=== PATIENT | female | born 1995 | race Caucasian/White ===

== ENCOUNTER → 2018-06-01 23:00 | Observation (INO) ==
--- NOTE | 2018-06-01 22:04 | OB/GYN Progress Note ---
Date of Encounter: 06/01/18 Time of Encounter: 22:00 - Assessment and Plan (1) 29 weeks gestation of Current Visit: Yes Status: Acute admitted for observation (2) NST (non-stress test) reactive on surveillance Current Visit: Yes Status: Acute FHR baseline 135 bpm moderate variability +15x15 accels no decels noted. CAt. 1 tracing Subjective - Subjective Principal diagnosis: lower abdominal and back pain, possible leaking of fluid Interval history: Patient is a 22 y/o at 29w d gestational age presents to labor and delivery with complaints of lower abdominal and back pain along with leaking fluid since 2029. Patient reports she also fell yesterday but reported that to her provider and was told as long as baby was moving good there was no need to come to labor and delivery. Patient denies vaginal bleeding. Patient reports good movement, a "gush" of fluid around 2029 that had no color to it, dysuria along with urinary frequency. Patient reports intercourse yesterday. Patient states she was on progesterone early in the but has not taken it for a long time. Patient denies any complications with current or problems with placenta. Patient receives care with Dr. Galeano. Antepartum ROS: loss of fluid, movement normal, contractions, no vaginal bleeding Objective - Exam FHR: auscultation normal, category 1 FHR comments: 135 bpm moderate variability +15x15 accels no decels noted. Cat. 1 tracing. non contractions noted. Auscultation: bilateral: normal Abdomen: Present: normal appearance, soft, gravid Uterus: Present: normal, firm Cervical dilation: 1 Cervix effacement: 25 station: -4 Comments: Speculum exam: No pooling noted. moderate amount of white discharge noted. FERN test negative SVE following speculum exam.
[2018-06-01 22:16] LABS: Bilirubin,Urine Small (Negative); Blood,Urine Negative (Negative); Clarity,Urine Cloudy (Clear); Color,Urine Dark Yellow (Yellow); Glucose,Urine (UA) Normal (Normal); Ketones,Urine 15 mg/dL (Negative); Leukocyte Esterase,Urine Large (Negative); Nitrite,Urine Negative (Negative); Protein,Urine 30 mg/dL (Neg-Trace); Specific Gravity,Urine 1.023 (1.010-1.025); Urobilinogen,Urine Normal (Normal)
[2018-06-01 22:19] LABS: Bacteria,Urine Moderate per hpf (None-Few); Hyaline Casts,Urine None Seen per lpf (None-Few); RBC,Urine 0-3 per hpf (0-3); Squamous Epithelial Cell,Urine Many per lpf (None-Few); WBC,Urine TNTC per hpf (0-3)
[2018-06-01 22:30] LABS: Calcium Oxalate Crystals,Urine Present
[2018-06-01 22:39] LABS: Amphetamine Screen,Urine Negative ng/mL (Cutoff=1000); Barbiturate Screen,Urine Negative ng/mL (Cutoff=200); Benzodiazepines Screen,Urine Negative ng/mL (Cutoff=200); Cannabinoid Screen,Urine Negative ng/mL (Cutoff = 50); Cocaine Screen,Urine Negative ng/mL (Cutoff= 300); Opiate Screen,Urine Negative ng/mL (Cutoff=300); Phencyclidine Screen,Urine Negative ng/mL (Cutoff=25)
--- NOTE | 2018-06-01 22:42 | Discharge Summary ---
Date of Encounter: 06/01/18 Time of Encounter: 22:41 - Discharge Diagnosis (1) 29 weeks gestation of Priority: Primary Status: Acute Comments: admitted for observation (2) UTI (urinary tract infection) in in third trimester Priority: Secondary Status: Acute Comments: RX for Macrobid Patient to follow up with [facility] this week - Discharge Medications Prescriptions: Nitrofurantoin (BID) [Macrobid] 100 mg PO BID 7 Days #14 capsule Home Medications: Flintstones Gummies 1 PO DAILY 04/22/18 [History] Nitrofurantoin (BID) [Macrobid] 100 mg PO BID 7 Days #14 capsule 06/01/18 [Rx] Allergies/Adverse Reactions: Allergy/AdvReac Type Severity Reaction Status Date / Time Amoxicillin Allergy Swelling Verified 03/06/17 18:41 of Lip/Tongue/Throat latex Allergy Swelling Verified 03/06/17 18:41 of Lip/Tongue/Throat morphine Allergy Swelling Verified 03/06/17 18:41 of Lip/Tongue/Throat naproxen Allergy Swelling Verified 03/06/17 18:41 of Lip/Tongue/Throat Penicillins [PCN] Allergy Swelling Verified 03/06/17 18:41 of Lip/Tongue/Throat tramadol Allergy Swelling Verified 06/01/18 22:04 of Lip/Tongue/Throat Data Procedures and tests throughout hospitalization: Laboratory Tests 06/01/18 06/01/18 22:05 22:05 Urine Color Dark Yellow Urine Clarity Cloudy A Urine pH 6.0 Ur Specific [place] 1.023 Urine Protein 30 H Urine Glucose (UA) Normal Urine Ketones 15 H Urine Blood Negative Urine Nitrite Negative Urine Bilirubin Small H Urine Urobilinogen Normal Ur Leukocyte Esterase Large H Urine Microscopic RBC 0-3 Urine Microscopic WBC TNTC H Ur Squamous Epith Cells Many H Calcium Oxalate Crystal Present Urine Bacteria Moderate H Hyaline Casts None Seen Ur Culture Indicated? NO. A Urine Opiates Screen Negative Ur Barbiturates Screen Negative Ur Phencyclidine Scrn Negative Ur Amphetamines Screen Negative U Benzodiazepines Scrn Negative Urine Cocaine Screen Negative U Marijuana (THC) Screen Negative Ur Drug Screen Interp See Below Labs on day of discharge: Labs from last 24 hours 06/01/18 06/01/18 22:05 22:05 Urine Color Dark Yellow Urine Clarity Cloudy A Urine pH 6.0 Ur Specific [place] 1.023 Urine Protein 30 H Urine Glucose (UA) Normal Urine Ketones 15 H Urine Blood Negative Urine Nitrite Negative Urine Bilirubin Small H Urine Urobilinogen Normal Ur Leukocyte Esterase Large H Urine Microscopic RBC 0-3 Urine Microscopic WBC TNTC H Ur Squamous Epith Cells Many H Calcium Oxalate Crystal Present Urine Bacteria Moderate H Hyaline Casts None Seen Ur Culture Indicated? NO. A Urine Opiates Screen Negative Ur Barbiturates Screen Negative Ur Phencyclidine Scrn Negative Ur Amphetamines Screen Negative U Benzodiazepines Scrn Negative Urine Cocaine Screen Negative U Marijuana (THC) Screen Negative Ur Drug Screen Interp See Below Date of admission: 06/01/18 21:42 Discharging clinician: Aisha Guevara Anticipated date of discharge: 06/01/18 - Patient Status Disposition: Home, Self-Care Condition: Good Functional capacity at discharge: independent ambulation - Discharge Instructions Follow Up With: Jose R Galeano MD [Non-Partnered Physician] - - Diet and Activity Activity: increase activity as tolerated Diet: regular diet Hospital Course [employer] Hospital course: False labor REactive NST UTI in Time Attestation: Total time spent providing and/or coordinating discharge services: Time Spent: Less than 30 minutes Exam - Constitutional General appearance IM: A&O X 3, pleasant, answers questions appropriately - VTE Reasons for not Prescribing Prophylaxis: Treatment not Indicated - Low risk for VTE
== END | disposition home or self-care (01) ==
LOC: 1NENULAB
PROVIDERS: ADMIT Advanced Practice Midwife; ATTEND Advanced Practice Midwife

== ENCOUNTER 2019-05-15 04:48 | Observation (INO) ==
[2019-05-15] MEDS ORDERED: *HR* FentaNYL (PF) 100 MCG/2 ML VIAL IVP ONE (05:18)
[2019-05-15] MEDS ORDERED: 0.9 % Sodium Chloride 1,000 ML IVC ONE (05:18)
[2019-05-15] MEDS ORDERED: Ondansetron 4 MG/2 ML VIAL IVP ONE (05:31)
[2019-05-15 05:42] LABS: Bilirubin,Urine Negative (Negative); Blood,Urine Large (Negative); Clarity,Urine Cloudy (Clear); Color,Urine Yellow (Yellow); Glucose,Urine (UA) Normal (Normal); Ketones,Urine Negative (Negative); Leukocyte Esterase,Urine Large (Negative); Nitrite,Urine Negative (Negative); Protein,Urine 100 mg/dL (Neg-Trace); Specific Gravity,Urine 1.016 (1.010-1.025); Urobilinogen,Urine Normal (Normal)
[2019-05-15 05:45] LABS: Bacteria,Urine Moderate per hpf (None-Few); Hyaline Casts,Urine Few per lpf (None-Few); RBC,Urine 50-100 per hpf (0-3); Squamous Epithelial Cell,Urine Many per lpf (None-Few); WBC,Urine TNTC per hpf (0-3)
[2019-05-15] MEDS ORDERED: cefTRIAXone 1,000 MG in Water for inj. (sterile) 10 ML IVP ONE (06:04)
[2019-05-15 06:13] LABS: Basophils # 0.1 K/mcL (0.0-0.2); Basophils % 0.7 %; Eosinophils # 0.4 K/mcL (0.0-0.6); Eosinophils % 2.1 %; Hematocrit 35.6 % (35.3-44.9); Hemoglobin 12.2 g/dL (11.5-15.4); Immature Granulocytes % 2.1 % (0-4); Lymphocytes # 2.5 K/mcL (0.6-4.6); Lymphocytes % 14.2 %; Mean Corpuscular HGB Conc 34.3 g/dL (31.6-35.5); Mean Corpuscular Hemoglobin 29.5 pg (28.0-33.3); Mean Corpuscular Volume 86.2 fL (83.0-100.0); Mean Platelet Volume 11.6 fL (9.4-12.4); Monocytes # 1.2 K/mcL (0.0-1.3); Monocytes % 6.6 %; Neutrophils # 13.3 K/mcL (1.6-8.9); Platelet Count 293 K/mcL (140-400); Red Blood Count 4.13 M/mcL (3.82-4.97); Red Cell Distribution Width 13.9 % (11.5-14.5); Segmented Neutrophils % 74.3 %; White Blood Count 17.9 K/mcL (4.3-11.1)
[2019-05-15] MEDS ORDERED: Nitrofurantoin (BID) 100 MG CAPSULE PO STA (06:16)
[2019-05-15 06:21] LABS: BUN/Creatinine Ratio 16 (6-26); Blood Urea Nitrogen 8 mg/dL (6-20); Calcium 8.8 mg/dL (8.6-10.3); Carbon Dioxide 23 mEq/L (23-29); Chloride 102 mEq/L (98-107); Glucose 86 mg/dL (70-105); Osmolality,Calculated 276 (280-300); Potassium 3.7 mEq/L (3.5-5.1); Sodium 134 mEq/L (136-145); eGFR For African Americans > 60 (> 60); eGFR For Non-African Americans > 60 (> 60)
[2019-05-15 07:22] VITALS: BP 97/57
[2019-05-15] MEDS ORDERED: Ringers Solution, Lactated 1,000 ML IVC ONE (09:07)
[2019-05-15] MEDS ORDERED: Acetaminophen 325 MG TABLET PO PRN (09:10)
[2019-05-15] MEDS ORDERED: Ringers Solution, Lactated 1,000 ML IVC SCH (09:15)
[2019-05-15] MEDS ORDERED: Ringers Solution, Lactated 1,000 ML ONE (09:16)
[2019-05-15] MEDS ORDERED: Naloxone 0.4 MG/ML INJ IVP PRN (09:27)
[2019-05-15] MEDS ORDERED: *HR* OxyCODONE Immed Rel 5 MG TABLET PO PRN (10:40)
== END 2019-05-15 13:00 | disposition home or self-care (01) ==
LOC: EMEROOARM 04:48 → 1NENUOBS 04:48
PROVIDERS: ADMIT Obstetrics & Gynecology; ATTEND Obstetrics & Gynecology

== ENCOUNTER 2019-08-14 01:15 | Observation (INO) ==
[2019-08-14 01:48] LABS: Bilirubin,Urine Negative (Negative); Blood,Urine Negative (Negative); Clarity,Urine Clear (Clear); Color,Urine Yellow (Yellow); Glucose,Urine (UA) Normal (Normal); Ketones,Urine Negative (Negative); Leukocyte Esterase,Urine Negative (Negative); Nitrite,Urine Negative (Negative); PH,Urine 7.5 pH Units (5.0-8.0); Protein,Urine Negative (Neg-Trace); Specific Gravity,Urine 1.018 (1.010-1.025); Urobilinogen,Urine Normal (Normal)
== END 2019-08-14 03:55 | disposition home or self-care (01) ==
LOC: 1NENULAB
PROVIDERS: ADMIT Registered Nurse; ATTEND Registered Nurse

== ENCOUNTER 2019-08-18 16:11 | Observation (INO) ==
[2019-08-18 16:46] LABS: Bilirubin,Urine Negative (Negative); Blood,Urine Negative (Negative); Clarity,Urine Cloudy (Clear); Color,Urine Yellow (Yellow); Glucose,Urine (UA) Normal (Normal); Ketones,Urine Negative (Negative); Leukocyte Esterase,Urine Trace (Negative); Nitrite,Urine Negative (Negative); Protein,Urine Negative (Neg-Trace); Urobilinogen,Urine Normal (Normal)
[2019-08-18 16:48] LABS: Bacteria,Urine Few per hpf (None-Few); Hyaline Casts,Urine None Seen per lpf (None-Few); RBC,Urine 0-3 per hpf (0-3); Squamous Epithelial Cell,Urine Many per lpf (None-Few)
[2019-08-18 17:01] LABS: Hematocrit 33.2 % (35.3-44.9); Hemoglobin 11.3 g/dL (11.5-15.4); Mean Corpuscular Hemoglobin 29.7 pg (28.0-33.3); Mean Corpuscular Volume 87.4 fL (83.0-100.0); Mean Platelet Volume 11.5 fL (9.4-12.4); Platelet Count 248 K/mcL (140-400); Red Cell Distribution Width 13.8 % (11.5-14.5); White Blood Count 14.5 K/mcL (4.3-11.1)
[2019-08-18 17:04] LABS: Prothrombin Time 11.9 Seconds (9.4-12.1)
[2019-08-18 17:06] LABS: Activated Partial Thrombo Time 30.5 Seconds (26.0-36.0)
[2019-08-18 17:35] LABS: Trichomonas DNA Not Detected (Not Detect)
[2019-08-18 17:36] LABS: Candida DNA Not Detected (Not Detect); Gardnerella DNA DETECTED (Not Detect)
== END 2019-08-18 19:58 | disposition home or self-care (01) ==
LOC: 1NENULAB
PROVIDERS: ADMIT Advanced Practice Midwife; ATTEND Advanced Practice Midwife

== ENCOUNTER → 2019-08-21 23:56 | Observation (INO) ==
[~2019-08-21 23:56] MED LIST: hydrOXYzine pamoate 25 MG CAPSULE PO ONE
== END | disposition home or self-care (01) ==
LOC: 1NENULAB
PROVIDERS: ADMIT Registered Nurse; ATTEND Registered Nurse

== ENCOUNTER → 2019-09-12 10:13 | Observation (INO) | END | disposition home or self-care (01) | LOC: 1NENULAB | PROVIDERS: ADMIT Advanced Practice Midwife; ATTEND Advanced Practice Midwife ==

== ENCOUNTER 2019-09-13 03:26 | Inpatient (IN) ==
[2019-09-13] MEDS ORDERED: Naloxone 0.4 MG/ML INJ IVP PRN (03:30)
[2019-09-13] MEDS ORDERED: Ondansetron 4 MG/2 ML VIAL IVP PRN (03:30)
[2019-09-13] MEDS ORDERED: Famotidine 20 MG/2 ML VIAL IVP PRN (03:30)
[2019-09-13] MEDS ORDERED: *HR* FentaNYL (PF) 100 MCG/2 ML VIAL IVP PRN (03:30)
[2019-09-13] MEDS ORDERED: Metoclopramide 10 MG/2 ML VIAL IVP PRN (03:30)
[2019-09-13] MEDS ORDERED: Lidocaine 1% 20 ML MDV INFILT PRN (03:30)
[2019-09-13] MEDS ORDERED: Ringers Solution, Lactated 1,000 ML IVC SCH (03:30)
[2019-09-13 03:46] LABS: Basophils # 0.1 K/mcL (0.0-0.2); Basophils % 0.6 %; Eosinophils # 0.3 K/mcL (0.0-0.6); Eosinophils % 1.5 %; Hematocrit 36.6 % (35.3-44.9); Immature Granulocytes % 1.8 % (0-4); Lymphocytes # 3.3 K/mcL (0.6-4.6); Lymphocytes % 17.7 %; Mean Corpuscular HGB Conc 32.8 g/dL (31.6-35.5); Mean Corpuscular Hemoglobin 28.7 pg (28.0-33.3); Mean Corpuscular Volume 87.6 fL (83.0-100.0); Mean Platelet Volume 11.5 fL (9.4-12.4); Monocytes # 1.4 K/mcL (0.0-1.3); Monocytes % 7.5 %; Neutrophils # 13.4 K/mcL (1.6-8.9); Platelet Count 284 K/mcL (140-400); Red Blood Count 4.18 M/mcL (3.82-4.97); Red Cell Distribution Width 13.6 % (11.5-14.5); Segmented Neutrophils % 70.9 %; White Blood Count 18.8 K/mcL (4.3-11.1)
[2019-09-13] MEDS ORDERED: Lanolin 7 G OINT...G. TP PRN (05:03)
[2019-09-13] MEDS ORDERED: Rho Immune Globulin 1,500 UNIT SYRINGE IM PRN (05:03)
[2019-09-13] MEDS ORDERED: Benzocaine/Menthol 56 GM AEROSOL SPRAY TP PRN (05:03)
[2019-09-13] MEDS ORDERED: Oxytocin 20 units/ LR 1000 mL 20 UNIT/1,000 ML BAG IVC SCH (05:03)
[2019-09-13] MEDS: Ibuprofen 600 MG TABLET PO PRN ×3 (06:43→20:09)
[2019-09-13] MEDS: Prenatal Vit/FA 1 EACH TABLET PO SCH (07:55)
[2019-09-13] MEDS: Acetaminophen 325 MG TABLET PO PRN ×2 (07:55→20:08)
[2019-09-14] MEDS: Acetaminophen 325 MG TABLET PO PRN (05:52)
[2019-09-14] MEDS: Ibuprofen 600 MG TABLET PO PRN (05:53)
[2019-09-14 08:09] VITALS: BP 97/64
[2019-09-14] MEDS: Prenatal Vit/FA 1 EACH TABLET PO SCH (09:05)
== END 2019-09-14 12:36 | disposition home or self-care (01) | DRG 560 ==
LOC: 1NENULAB 03:26 → 1NENUOBS 06:38
PROVIDERS: ADMIT Advanced Practice Midwife; ATTEND Advanced Practice Midwife

== ENCOUNTER 2021-06-05 23:16 | Inpatient (IN) ==
[2021-06-05] MEDS ORDERED: Famotidine 20 MG/2 ML VIAL IVP PRN (23:23)
[2021-06-05] MEDS ORDERED: Ondansetron 4 MG/2 ML VIAL IVP PRN (23:23)
[2021-06-05] MEDS ORDERED: Metoclopramide 10 MG/2 ML VIAL IVP PRN (23:23)
[2021-06-05] MEDS ORDERED: *HR* FentaNYL (PF) 100 MCG/2 ML VIAL IVP PRN (23:23)
[2021-06-05] MEDS ORDERED: Naloxone 0.4 MG/ML INJ IVP PRN (23:23)
[2021-06-05] MEDS ORDERED: Azithromycin 500 MG in 0.9 % Sodium Chloride 250 ML IVPB PRN (23:23)
[2021-06-05 23:39] LABS: Basophils # 0.1 K/mcL (0.0-0.2); Basophils % 0.6 %; Eosinophils # 0.3 K/mcL (0.0-0.6); Eosinophils % 1.9 %; Hematocrit 33.2 % (35.3-44.9); Hemoglobin 11.1 g/dL (11.5-15.4); Immature Granulocytes % 2.2 % (0-4); Lymphocytes # 2.6 K/mcL (0.6-4.6); Lymphocytes % 18.1 %; Mean Corpuscular HGB Conc 33.4 g/dL (31.6-35.5); Mean Corpuscular Hemoglobin 28.6 pg (28.0-33.3); Mean Corpuscular Volume 85.6 fL (83.0-100.0); Mean Platelet Volume 12.3 fL (9.4-12.4); Monocytes % 6.8 %; Neutrophils # 10.1 K/mcL (1.6-8.9); Platelet Count 228 K/mcL (140-400); Red Blood Count 3.88 M/mcL (3.82-4.97); Red Cell Distribution Width 13.3 % (11.5-14.5); Segmented Neutrophils % 70.4 %; White Blood Count 14.3 K/mcL (4.3-11.1)
[2021-06-05 23:48] LABS: Amphetamine Screen,Urine Negative ng/mL (Cutoff=1000); Barbiturate Screen,Urine Negative ng/mL (Cutoff=200); Benzodiazepines Screen,Urine Negative ng/mL (Cutoff=200); Cannabinoid Screen,Urine Negative ng/mL (Cutoff = 50); Cocaine Screen,Urine Negative ng/mL (Cutoff= 300); Opiate Screen,Urine Negative ng/mL (Cutoff=300); Phencyclidine Screen,Urine Negative ng/mL (Cutoff=25)
[2021-06-06] MEDS: Ringers Solution, Lactated 1,000 ML IVC SCH ×2 (00:19→18:11)
[2021-06-06 00:20] LABS: Influenza A PCR Negative (Negative); Influenza B PCR Negative (Negative); Resp. Syncytial Virus PCR Negative (Negative)
[2021-06-06 00:23] LABS: SARS-CoV-2 by PCR (In House) Negative (Negative)
[2021-06-06] MEDS: Oxytocin 20 units/ LR 1000 mL 20 UNIT/1,000 ML BAG IVC SCH ×2 (02:39→23:16)
[2021-06-06] MEDS ORDERED: CeFAZolin 2,000 MG/120 ML BAG IVPB ONE (12:00)
[2021-06-06] MEDS ORDERED: *HR* Propofol 200 MG/20 ML VIAL IVP ONE (13:30)
[2021-06-06] MEDS ORDERED: *HR* Succinylcholine 200 MG/10 ML VIAL IVP ONE (13:30)
[2021-06-06] MEDS ORDERED: Lidocaine -MPF 2% 5 ML VIAL ONE (13:30)
[2021-06-06] MEDS: *HR* Nalbuphine 10 MG/ML AMPUL IV PRN ×2 (14:54→20:01)
[2021-06-06] MEDS ORDERED: ceFAZolin 1,000 MG in 0.9 % Sodium Chloride Mini Bag 100 ML IVPB SCH (20:00)
[2021-06-06] MEDS ORDERED: Nicotine 21 MG PATCH.TD24 TD SCH (21:00)
[2021-06-06] MEDS ORDERED: Lidocaine 1% 20 ML MDV ONE (21:32)
[2021-06-06] MEDS ORDERED: Ibuprofen 800 MG TABLET PO ONE (21:55)
[2021-06-07] MEDS ORDERED: Lanolin 7 G OINT...G. TP PRN (01:17)
[2021-06-07] MEDS ORDERED: Oxytocin 20 units/ LR 1000 mL 20 UNIT/1,000 ML BAG IVC SCH (01:17)
[2021-06-07] MEDS ORDERED: Measles/Mumps/Rubella Vacc 0.5 ML VIAL SQ PRN (01:17)
[2021-06-07] MEDS ORDERED: Benzocaine/Menthol 56 GM AEROSOL SPRAY TP PRN (01:17)
[2021-06-07] MEDS ORDERED: Rho Immune Globulin 1,500 UNIT SYRINGE IM PRN (01:17)
[2021-06-07] MEDS ORDERED: Ondansetron ODT 4 MG TAB.RAPDIS SL PRN (01:17)
[2021-06-07] MEDS: Acetaminophen 325 MG TABLET PO SCH ×3 (01:26→19:37)
[2021-06-07] MEDS: Ibuprofen 600 MG TABLET PO SCH ×3 (04:17→19:38)
[2021-06-07 04:51] LABS: Basophils # 0.1 K/mcL (0.0-0.2); Basophils % 0.5 %; Eosinophils % 0.2 %; Hematocrit 26.1 % (35.3-44.9); Immature Granulocytes % 0.8 % (0-4); Lymphocytes # 2.6 K/mcL (0.6-4.6); Lymphocytes % 14.6 %; Mean Corpuscular HGB Conc 34.1 g/dL (31.6-35.5); Mean Corpuscular Hemoglobin 29.6 pg (28.0-33.3); Mean Corpuscular Volume 86.7 fL (83.0-100.0); Mean Platelet Volume 11.8 fL (9.4-12.4); Monocytes # 1.3 K/mcL (0.0-1.3); Monocytes % 7.6 %; Neutrophils # 13.3 K/mcL (1.6-8.9); Platelet Count 197 K/mcL (140-400); Red Blood Count 3.01 M/mcL (3.82-4.97); Red Cell Distribution Width 13.3 % (11.5-14.5); Segmented Neutrophils % 76.3 %; White Blood Count 17.5 K/mcL (4.3-11.1)
[2021-06-07 04:56] LABS: Hemoglobin 8.9 g/dL (11.5-15.4)
[2021-06-07] MEDS: Prenatal Vit/FA 1 EACH TABLET PO SCH (07:48)
[2021-06-07] MEDS ORDERED: Etonogestrel 68 MG IMPLANT IL ONE (11:04)
[2021-06-07 21:22] VITALS: BP 111/67; PULSE 54; TEMP 98.1; O2SAT 99
[2021-06-08] MEDS ORDERED: Nicotine 21 MG PATCH.TD24 TD SCH
[2021-06-08] MEDS: Ibuprofen 600 MG TABLET PO SCH ×2 (01:08→12:02)
[2021-06-08] MEDS: Acetaminophen 325 MG TABLET PO SCH ×2 (05:24→12:02)
[2021-06-08] MEDS: Prenatal Vit/FA 1 EACH TABLET PO SCH (09:11)
== END 2021-06-08 12:16 | disposition home or self-care (01) | DRG 560 ==
LOC: 1NENULAB → 1NENUOBS 06-07 00:30
PROVIDERS: ADMIT Advanced Practice Midwife; ATTEND Advanced Practice Midwife